=== PATIENT | male | born 1945 | race Caucasian/White ===

== ENCOUNTER → 2018-07-09 | Outpatient (CLI) | payer OTHER ==
[~2018-07-09] MED LIST: ASPIR 8181 MG PO; COZAAR 25 MG TA25 M1 PO; FISH OIL 1,001000 M2 PO; LIPITOR10 MG PO; TIMOLOL 0.5%-LAT5 ML OPHTHALMIC
== END ==
LOC: RAD 15:15
DX: R05 Cough (principal); R06.09 Other forms of dyspnea